=== PATIENT | male | born 2000 | race Hispanic/Latino ===

== ENCOUNTER 2021-05-21 20:16 | Observation (INO) | payer BC ==
[2021-05-21] MEDS ORDERED: Lidocaine 1% (PF) 30 ML VIAL ONE (20:26)
[2021-05-21] MEDS ORDERED: Lorazepam 2 MG/ML VIAL ONE (21:54)
[2021-05-21] MEDS ORDERED: Ondansetron PF 4 MG/2 ML Vial ONE (21:54)
[2021-05-21] MEDS ORDERED: Fentanyl 100 MCG/2 ML VIAL ONE (21:55)
[2021-05-22] MEDS ORDERED: Acetaminophen 325 MG TAB PO PRN (00:55)
[2021-05-22] MEDS ORDERED: Senokot S 8.6-50 MG TAB PO PRN (00:55)
[2021-05-22] MEDS ORDERED: Calcium Carbonate 500 MG ChewTAB PO PRN (00:55)
[2021-05-22] MEDS ORDERED: Guaifenesin DM 100-10/5 ML UDCUP PO PRN (00:55)
[2021-05-22] MEDS ORDERED: Zolpidem Tartrate 5 MG TAB PO PRN (00:55)
[2021-05-22] MEDS ORDERED: Ondansetron PF 4 MG/2 ML Vial IVP PRN (00:55)
[2021-05-22] MEDS ORDERED: Morphine 4 MG/ML VIAL SLOW IVP PRN (00:59)
[2021-05-22 01:37] LABS: #Monocytes 0.8 10x3/uL (0.0-1.1); #Neutrophils 9.2 10x3/uL (1.5-8.4); %Basophils 0.3 % (0.0-2.0); %Eosinophils 0.1 % (0.0-6.0); %Lymphocytes 9.3 % (18.0-47.0); %Monocytes 7.2 % (0.0-10.0); %Neutrophils 82.8 % (40.0-75.0); Hemoglobin 14.6 g/dL (13.5-17.5); Mean Corpuscular HGB CONC 33.7 g/dL (32.0-36.0); Mean Corpuscular Hemoglobin 31.3 pg (27.0-33.0); Mean Corpuscular Volume 92.7 fl (81.2-95.1); Mean Platelet Volume 9.6 fl (7.4-10.4); Platelet Count 243 10x3/uL (150-450); RBC Distribution Width 12.5 % (11.5-14.5); Red Blood Cell (RBC) Count 4.67 10x6/uL (4.32-5.72); White Blood Cell (WBC) Count 11.1 10x3/uL (3.5-10.5)
[2021-05-22 01:41] LABS: ALT (SGPT) 23 U/L (8-55); AST (SGOT) 18 U/L (10-45); Albumin 4.5 g/dL (3.5-5.0); Alkaline Phosphatase 89 U/L (50-130); Anion Gap 13 mmol/L (10-20); BUN (Urea Nitrogen) 18 mg/dL (8.4-21.0); Bilirubin, Total 0.4 mg/dL (0.2-1.2); Calc. Creatinine Clearance 0 mL/min (70-130); Calcium 8.9 mg/dL (7.8-10.44); Carbon Dioxide 25 mmol/L (22-29); Chloride 105 mmol/L (98-107); Globulin 2.7 g/dL (2.4-3.5); Glucose 114 mg/dL (70-105); Potassium 3.9 mmol/L (3.5-5.1); Protein, Total 7.2 g/dL (6.0-8.3); Sodium 139 mmol/L (136-145)
[2021-05-22 02:49] VITALS: BMI 19.7
[2021-05-22] MEDS: traMADol HCl 50 MG TAB PO PRN ×2 (03:02→21:13)
[2021-05-22] MEDS ORDERED: Sodium Chloride 0.9% 500 ML IVPB SCH (21:00)
[2021-05-23 04:56] LABS: #Eosinphils 0.1 10x3/uL (0.0-0.5); #Neutrophils 7.2 10x3/uL (1.5-8.4); %Basophils 0.4 % (0.0-2.0); %Eosinophils 1.2 % (0.0-6.0); %Neutrophils 71.2 % (40.0-75.0); Hemoglobin 14.4 g/dL (13.5-17.5); Mean Corpuscular HGB CONC 32.9 g/dL (32.0-36.0); Mean Corpuscular Hemoglobin 31.4 pg (27.0-33.0); Mean Corpuscular Volume 95.4 fl (81.2-95.1); Platelet Count 227 10x3/uL (150-450); RBC Distribution Width 12.7 % (11.5-14.5); Red Blood Cell (RBC) Count 4.59 10x6/uL (4.32-5.72); White Blood Cell (WBC) Count 10.1 10x3/uL (3.5-10.5)
[2021-05-23 05:14] LABS: Anion Gap 12 mmol/L (10-20); BUN (Urea Nitrogen) 17 mg/dL (8.4-21.0); Calc. Creatinine Clearance 102 mL/min (70-130); Calcium 9.1 mg/dL (7.8-10.44); Carbon Dioxide 27 mmol/L (22-29); Chloride 106 mmol/L (98-107); Glucose 93 mg/dL (70-105); Potassium 4.1 mmol/L (3.5-5.1); Sodium 141 mmol/L (136-145)
[2021-05-23] MEDS ORDERED: FLU VACC QS2021-22(6MOS UP)/PF 60 MCG/0.5 ML SYRINGE IM ONE (09:00)
[2021-05-23 11:40] VITALS: TEMP 98.6
[2021-05-23 15:24] VITALS: BP 110/60
[2021-05-23 21:44] LABS: SARS-CoV-2 PCR by NAA Not Detected (NotDetected)
== END 2021-05-23 17:29 | disposition short-term general hospital (02) ==
LOC: CSHERS 20:16 → CSHTELE 05-22 02:30
PROVIDERS: ADMIT Student in an Organized Health Care Education/Training Program; ATTEND Nurse Practitioner Family
DX: J93.11 Primary spontaneous pneumothorax (principal); Z20.822 Contact with and (suspected) exposure to COVID-19
CPT/HCPCS: 32554; 36415; 36416; 71045; 80048; 80053; 85025; 93005; 93010; 94762; 96374; 96375; G0378; J2001; J2060; J2405; J3010; J7030; U0003; U0005